=== PATIENT | female | born 2000 | race Hispanic/Latino ===

== ENCOUNTER 2019-05-21 18:02 | Emergency (ER) | payer OTHER ==
[~2019-05-21] VITALS: Ht 157.5 cm; Wt 105.2 kg
--- OUTSIDE RECORDS SUMMARY | 2019-05-21 18:06 | XMS ---
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 - 2 Visits in 30 Days CARE PROVIDERS [place] [facility] PHONE: Unknown SIL[facility] PHONE: Unknown Rupert has no Care Guidelines for this patient. EAleah VISIT COUNT (12 MO.) 6 [facility], [facility] [address] TOTAL 7 NOTE: Visits indicate total known visits. ED/UCC VISIT TRACKING (12 MO.) 05/21/2019 18:04 [facility] [place] TYPE: Emergency COMPLAINT: - LOWER ABD PAIN,NAUSEA 05/20/2019 15:16 [employer] [facility] DIAGNOSES: - LOWER LEFT SIDE PAIN - Left lower quadrant pain 04/19/2019 07:13 [facility] DIAGNOSES: - Streptococcal pharyngitis - SWOLLEN TONSILS 12/14/2018 15:03 [employer] [employer] [place] TYPE: Emergency DIAGNOSES: - SUTURE REMOVAL 12/08/2018 12:17 [employer] [place] TYPE: Emergency DIAGNOSES: - Encounter for other specified aftercare - WOUND CHECK 12/07/2018 22:09 [employer] [place] TYPE: Emergency DIAGNOSES: - Contusion of other part of head, initial encounter - Concussion with loss of consciousness of unspecified duration, initial encounter - Laceration without foreign body of other part of head, initial encounter - FALL/HEAD LACERATION - Fracture of unspecified phalanx of left thumb, initial encounter for closed fracture 11/17/2018 10:15 [facility] [place] TYPE: Emergency DIAGNOSES: - CHEST PAIN - Other viral agents as the cause of diseases classified elsewhere - Unspecified asthma with (acute) exacerbation - Acute upper respiratory infection, unspecified INPATIENT VISIT TRACKING (12 MO.) No inpatient visits to display in this time frame [email or web address]
[2019-05-21] MEDS ORDERED: ZOFRAN4 MG PO (20:07)
== END 2019-05-21 20:33 | disposition home or self-care (01) ==
LOC: ED 18:02
DX: R10.2 Pelvic and perineal pain (principal); Z91.048 Other nonmedicinal substance allergy status; Z88.0 Allergy status to penicillin; Z88.1 Allergy status to other antibiotic agents
CPT/HCPCS: 80048; 81001; 84703; 85025; 87210; 87491; 87591; 96374; 96375; 99284-25; J1170; J2405; J2550

== ENCOUNTER 2020-11-22 16:11 | Emergency (ER) | payer OTHER ==
[~2020-11-22] VITALS: Ht 157.5 cm; Wt 114.3 kg
[~2020-11-22 16:11] MED LIST: ZOFRAN4 MG PO
--- OUTSIDE RECORDS SUMMARY | 2020-11-22 16:14 | XMS ---
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 Care History Medical/Surgical 05/26/2019 [facility] \T\middot;\T\nbsp; PATIENT IS A [employer] MEMBER. \T\middot;\T\nbsp; PLEASE REFER PATIENT TO [facility] FOR NON EMERGENT MEDICAL NEEDS. \T\middot;\ T\nbsp; [facility] CAN SEE PATIENTS SAME DAY FOR APTS IF PATIENT CALLS FIRST THING IN THE MORNING. [facility]12 MO.) [facility]. TOTAL 2 NOTE: Visits indicate total known visits. ED/UCC VISIT TRACKING (12 MO.) 11/22/2020 16:11 [facility] [place] TYPE: Emergency COMPLAINT: - LEFT ARM PAIN 11/11/2020 14:46 [facility] [place] TYPE: Emergency DIAGNOSES: - Nondisplaced fracture of head of left radius, initial encounter for closed fracture - L ELBOW PAIN INPATIENT VISIT TRACKING (12 MO.) No inpatient visits to display in this time frame [email or web address]
[2020-11-22] MEDS ORDERED: HYDROCODON-ACE1 EA10 PO (16:32)
[2020-11-22] MEDS ORDERED: NORCO 5-325 TA1 EACH PO (17:56)
== END 2020-11-22 18:04 | disposition home or self-care (01) ==
LOC: ED 16:11
DX: M25.522 Pain in left elbow (principal); R21 Rash and other nonspecific skin eruption; W01.198A Fall on same level from slipping, tripping and stumbling with subsequent striking against other object, initial encounter; J45.909 Unspecified asthma, uncomplicated; F17.200 Nicotine dependence, unspecified, uncomplicated; Z88.0 Allergy status to penicillin; Z88.1 Allergy status to other antibiotic agents; Z91.048 Other nonmedicinal substance allergy status
CPT/HCPCS: 73080; 99283-25